=== PATIENT | female | born 1930 | race Caucasian/White ===

== ENCOUNTER 2017-03-02 16:19 | Inpatient (IN) ==
--- NOTE | 2017-03-02 18:01 | PROVIDER DOCUMENTATION ---
HPI-General Adult - General Chief Complaint: Altered Mental Status Stated Complaint: AMS Time Seen by Provider: 03/02/17 17:31 Source: family Allergies/Adverse Reactions: Patient Allergies Allergy/AdvReac Type Severity Reaction Status Date / Time No Known Allergies Allergy Verified 03/02/17 16:33 Home Medications: Home Medication List Medication Instructions Recorded Confirmed Last Taken Type Aspirin 81 mg PO DAILY 06/12/15 03/02/17 03/02/17 History Apixaban [Eliquis] 2.5 mg PO BID 12/18/16 03/02/17 03/02/17 History Allopurinol [Allopurinol] 100 mg PO DAILY 02/05/17 03/02/17 03/02/17 History Amlodipine [Norvasc] 5 mg PO DAILY 02/05/17 03/02/17 03/02/17 History Ezetimibe [Zetia] 10 mg PO DAILY 02/05/17 03/02/17 03/02/17 History Fenofibrate Nanocrystallized 145 mg PO DAILY 02/05/17 03/02/17 03/02/17 History [Fenofibrate] Furosemide [Furosemide] 20 mg PO DAILY 02/05/17 03/02/17 03/02/17 History Lisinopril [Lisinopril] 20 mg PO DAILY 02/05/17 03/02/17 03/02/17 History Sherwood-3 Fatty Acids/Fish Oil 1 each PO BID 02/05/17 03/02/17 03/02/17 History [Sherwood-3 1,000 mg Softgel] Omeprazole [Omeprazole] 20 mg PO DAILY 02/05/17 03/02/17 03/02/17 History PRAVAstatin [Pravachol] 40 mg PO DAILY 02/05/17 03/02/17 03/02/17 History Potassium Chloride E.r. [Micro-K] 10 meq PO DAILY 02/05/17 03/02/17 03/02/17 History Sotalol HCl [Sotalol] 80 mg PO BID 02/05/17 03/02/17 03/02/17 History Hydrocodone/Acetaminophen [Nordman 7.5 mg PO TID PRN 02/22/17 03/02/17 03/02/17 History 7.5-325 Tablet] Sulfamethoxazole/Trimethoprim 1 each PO BID #20 tablet 0703/02/17 Rx [Bactrim Ds Tablet] Hydrocodone/Acetaminophen [Nordman 1 each PO Q4-6H PRN PRN #40 tablet 02/26/1703/02/17 Rx 10-325 Tablet] Memantine HCl [Namenda Xr] 28 mg PO DAILY 03/02/17 03/02/17 Unknown History Clonidine [Catapres] 1 tab PO TID 03/03/17 03/03/17 03/02/17 History - History of Present Illness -Gen Adult Nature of Presenting Problems: PER PT FAMILY SHE HAS HAD CONTINUED AMS FOR THE PAST WEEK AFTER A RECENT UTI. FAMILY STS THEY AREN'T SURE IF THE UTI IS WORSE OR IF THIS IS ANOTHER PROBLEM. STS PT HAS BEEN SEEN HERE 4 TIMES IN THE PAST WEEK FOR FALLS AND HAS BEEN REMOVING HER SPLINTS AND CAST FROM ORTHO R/T DEMENTIA. FAMILY HAS BEEN STAYING WITH HER AROUND THE CLOCK BUT STS SHE IS VERY WEAK AND THEY ARE HAVING TROUBLE GETTING HER AROUND THE HOUSE WHEN THIS HAS NOT BEEN A PROBLEM BEFORE. STS SHE FELL AGAIN TODAY AND HAS A BRUISED, SWOLLEN RT ANKLE. Location of Pain/Injury: reports: lower extremity Review of Systems - Adult - REVIEW OF SYSTEMS - ADULT ROS:: ROS per family Constitutional: reports: no symptoms reported. denies: fever Eyes: reports: no symptoms reported Ears, Nose, Mouth & Throat: reports: no symptoms reported Cardiovascular: reports: no symptoms reported. denies: syncope Respiratory: reports: no symptoms reported. denies: cough, shortness of breath Gastrointestinal: reports: see HPI, constipation Genitourinary: reports: see HPI, other (RECENT UTI) Musculoskeletal: reports: see HPI, muscle weakness Integumentary: reports: no symptoms reported Neurological: reports: see HPI, other (INCREASED CONFUSION) Psychiatric: reports: no symptoms reported Endocrine: reports: no symptoms reported Hematologic/Lymphatic: reports: no symptoms reported Allergic/Immunologic: reports: no symptoms reported All Other Systems: Reviewed and Negative Past History - Adult - PAST MEDICAL HISTORY-ADULT Review of Records: reports: Old Records Reviewed, Nursing Assessment Review, Medications Reviewed, Social history reviewed & non-contributory. Major Childhood Illnesses: reports: denies history Cardiovascular: reports: A-Fib, HTN, hyperlipidemia Respiratory: reports: denies history Gastrointestinal: reports: denies history Genitourinary: reports: denies history Musculoskeletal: reports: arthritis, chronic pain Neurological: reports: dementia, TIA (balance issues) Endocrine/Immune: reports: denies history, cancer (breast ca, tx with left mastectomy/tamoxifen.) - PRIOR SURGERIES/PROCEDURES Surgical/Procedure History: reports: cardiac stent, hysterectomy, orthopedic ( extremity), joint replacement, breast - IMMUNIZATION STATUS Childhood Immunizations: See Nurse Assessment Flu Vaccine: See Nurse Assessment Physical Exam-General - PHYSICAL EXAM-ADULT Initial Vital Signs Reviewed: Yes - CONSTITUTIONAL General Appearance: appears well, alert, no apparent distress, obese - EYES Eyes: PERRL/EOMI - HEAD, EARS, NOSE, MOUTH & THROAT HENMT: normocephalic/atraumatic, moist mucous membranes - RESPIRATORY Respiratory: chest non-tender, lungs clear, normal breath sounds, no pleuratic chest pain, no respiratory distress. negative: wheezing - CARDIOVASCULAR Cardiovascular: bradycardia - GASTROINTESTINAL (ABDOMEN) Abdominal Exam: normal bowel sounds, non tender, soft, no organomegaly, no pulsatile mass, distended - MUSCULOSKELETAL Extremity: normal range of motion, non-tender, normal capillary refill, swelling (AND ECCHYMOSIS TO RT ANKLE AND FOOT, PT DENIES PAIN), other (LEFT ARM IN CAST, PARTIALLY REMOVED FROM HAND). negative: deformity - SKIN Integumentary: normal color, normal turgor, warm/dry - NEUROLOGIC Neurologic: grossly normal, motor weakness. negative: aphasia, facial droop - PSYCHIATRIC Psych/Mental Status: depressed affect, other (ORIENTED TO PERSON ONLY. ASKS ABOUT HER "9 MONTH OLD BABY", PICKS AT GOWN AND CAST.) Progress - PLAN OF CARE/RESULTS Progress/Plan/Lab Results: Vital Signs - 8 hr 03/02/17 16:34 Temperature 97.0 F L Pulse Rate 51 L Respiratory Rate 18 Blood Pressure 148/63 O2 Sat by Pulse Oximetry 99 Orders Category Date Time Status Saline Loc NOW Care 03/02/17 17:55 Active ANKLE COMPLETE RIGHT [RAD] Stat Exams 03/02/17 16:45 Taken FOOT COMPLETE RIGHT [RAD] Stat Exams 03/02/17 16:45 Taken CBC WITH ELECTRONIC DIFF [HEME] Stat Lab 03/02/17 17:55 Uncollected COMPREHENSIVE METABOLIC PANEL [CHEM] Stat Lab 03/02/17 17:55 Uncollected DISCUSSED PT EXAM, LABS, AND PLAN OF CARE WITH DR. MAR WHO AGREES WITH PLAN TO CONSULT HOSPITALIST FOR ADMISSION. Result Diagrams: 03/05/17 05:30 03/05/17 05:30 - XRAY 1 XRAY: Right XRAY Study: Ankle, Foot Impression: Normal, See EMR Report XRAY Interpretation: NO ACUTE BONY INJURY.-DR. WATERMAN - CONSULTS/PCP/HOSPITALIST Notification #1 *Consult/PCP/Hospitalist*: DR. GA Time Discussed: 20:00 (DISCUSSED INPATIENT ADMISSION FOR ARF, DEHYDRATION.) Consult Disposition: Admit Departure - Departure Date of Disposition Decision: 03/02/17 Time of Disposition Decision: 20:00 DIAGNOSIS: Dehydration Acute renal failure Qualifiers: Acute renal failure type: unspecified Qualified Code(s): N17.9 - Acute kidney failure, unspecified Disposition: ADMITTED INPATIENT 09 Certified Medical Emergency: Emergent Condition: Good - Critical Care Note This patient required my direct & personal management of CC.: No Attestation - Physician/ RONNY Attestation Patient care was provided by Advanced Practice Provider:: Yes Advanced Practice Provider:: Nicolle Laboy Advanced Practice Provider documentation review:: The Mid-level provider documentation, treatment plan and medical decision making was reviewed by the physician who agrees with all treatment and medical decision making by the P.
[2017-03-02 18:38] LABS: MANUAL DIFF NEEDED? NO
[2017-03-02 18:39] LABS: BASO% 0.4 % (0.0-0.8); EOS# 0.21 X1000 (0.0-0.7); EOS% 3.8 % (0.0-10.0); HEMATOCRIT 33.5 % (37.0-47.0); HEMOGLOBIN 10.9 g/dL (12.0-16.0); IMM GRAN# 0.02 X1000 (0.0-0.04); IMM GRAN% 0.4 % (0.0-0.5); LYMPH# 1.22 X1000 (1.2-3.4); LYMPH% 22.2 % (20.5-51.1); MCH 26.1 PG (27-31); MCHC 32.5 g/dL (33-37); MCV 80.3 FL (81-99); MONO% 12.7 % (1.7-9.3); MPV 12.4 FL (7.4-10.4); NEUT% 60.5 % (42.2-75.2); PLT 195 X1000 (130-400); RBC 4.17 XMIL (4.2-5.4)
--- NOTE | 2017-03-02 18:41 | Diag Imaging Result Doc PS360 ---
EXAM: ANKLE COMPLETE RIGHT INDICATION: fall/bruising TECHNIQUE: 3 views COMPARISON: None. FINDINGS: The bones are somewhat osteopenic. There are mild midfoot degenerative changes and small calcaneal enthesophytes. There is no discrete fracture, dislocation, or significant intrinsic osseous lesion, otherwise. There is soft tissue edema surrounding the ankle. IMPRESSION: Soft tissue edema and chronic bony changes. No definite acute osseous abnormality. Electronically signed by Jerrell Kulkarni 03/02/2017 6:38 PM
--- NOTE | 2017-03-02 18:47 | Diag Imaging Result Doc PS360 ---
EXAM: FOOT COMPLETE RIGHT INDICATION: fall/bruising TECHNIQUE: 3 views COMPARISON: None. FINDINGS: The bones are osteopenic. There are small calcaneal bone spurs and mild midfoot degenerative changes. There is no discrete fracture, dislocation, or significant intrinsic osseous lesion, otherwise. There is soft tissue edema at the dorsum of the foot. IMPRESSION: Chronic changes and soft tissue edema. No evidence of acute osseous abnormality. Electronically signed by Jerrell Kulkarni 03/02/2017 6:44 PM
[2017-03-02 19:20] LABS: ALBUMIN 3.9 g/dL (3.5-5.0); CALCIUM 9.4 mg/dL (8.8-10.2); POTASSIUM 5.2 mmol/L (3.5-5.1); TOTAL BILIRUBIN 0.4 mg/dL (0.20-1.00); TOTAL PROTEIN 6.8 g/dL (6.3-8.3)
[2017-03-02 19:22] LABS: URINE CULTURE PL NEEDED? NO
--- NOTE | 2017-03-02 19:36 | EKG Report ---
Test Performed on : 03/02/2017 7:27:57 PM Test Reason : CHEST PAIN Blood Pressure : / mmHG Vent. Rate : 060 BPM Atrial Rate : 060 BPM P-R Int : 228 ms QRS Dur : 100 ms QT Int : 456 ms P-R-T Axes : 043 -38 035 degrees QTc Int : 456 ms Sinus rhythm. with 1st degree AV block. Left axis deviation Moderate voltage criteria for LVH, may be normal variant Abnormal ECG When compared with ECG of 18-DEC-2016 03:31, Nonspecific T wave abnormality no longer evident in Lateral leads Unconfirmed Result
[2017-03-02 19:41] LABS: BILIRUBIN URINE NEGATIVE (NEGATIVE); BLOOD URINE NEGATIVE (NEGATIVE); CLARITY CLEAR (CLEAR); COLOR YELLOW; GLUCOSE URINE NEGATIVE (NEGATIVE); LEUKOCYTES URINE NEGATIVE (NEGATIVE); NITRITE URINE NEGATIVE (NEGATIVE); PROTEIN URINE NEGATIVE (NEGATIVE); SP GRAVITY URINE 1.015; UROBILINOGEN URINE 1+(1 mg/dL)
[2017-03-02 19:43] LABS: URINE CAST NONE SEEN /LPF; URINE CRYSTAL NONE SEEN /HPF; URINE EPITHELIAL CELLS <10 /HPF (<10); URINE SOURCE CATH
--- NOTE | 2017-03-02 19:56 | ED EKG INTERP ---
This chart was entered by Eugenie Kimball Scribe, acting as scribe for Kemar Penny MD. EKG Interpretation - EKG Time of EKG reading by physician:: 19:27 EKG Read and Signed by:: Kemar Penny EKG Interpretation (*Must complete 3 of following elements*): Abnormal Rate: 60 Rhythm: sinus rhythm with 1st degree AV block Votaw: left QRS: LVH This chart was documented by the indicated scribe, (Eugenie Kimball Scribe) and accurately reflects the services I performed and decisions made by me, Kemar Penny MD, as attested by the provider's signature.
[2017-03-02] MEDS ORDERED: TYLENOL PO PRN (21:30)
[2017-03-02] MEDS ORDERED: ZOFRAN IV PRN (21:30)
[2017-03-02] MEDS ORDERED: NORCO-10 PO PRN (21:55)
[2017-03-02] MEDS: NS 1,000 ML IV SCH (22:04)
[2017-03-02] MEDS: ATIVAN PO PRN (22:12)
[2017-03-03 06:46] LABS: HEMATOCRIT 37.1 % (37.0-47.0); HEMOGLOBIN 12.1 g/dL (12.0-16.0); MCHC 32.6 g/dL (33-37); MCV 79.8 FL (81-99); MPV 12.3 FL (7.4-10.4); RBC 4.65 XMIL (4.2-5.4)
[2017-03-03 07:03] LABS: ALBUMIN 3.9 g/dL (3.5-5.0); CALCIUM 9.3 mg/dL (8.8-10.2); MAGNESIUM 2.2 mg/dL (1.5-2.7); POTASSIUM 4.5 mmol/L (3.5-5.1); TOTAL BILIRUBIN 0.5 mg/dL (0.20-1.00); TOTAL PROTEIN 6.8 g/dL (6.3-8.3)
[2017-03-03] MEDS: FISH OIL CONCENTRATE PO SCH ×2 (09:39→20:44)
[2017-03-03] MEDS: TRICOR PO SCH (09:39)
[2017-03-03] MEDS: ELIQUIS PO SCH ×2 (09:39→20:44)
[2017-03-03] MEDS: ZYLOPRIM PO SCH (09:39)
[2017-03-03] MEDS: NAMENDA XR PO SCH (09:39)
[2017-03-03] MEDS: ASPIRIN PO SCH (09:39)
[2017-03-03] MEDS: NORVASC PO SCH (09:39)
[2017-03-03] MEDS: BETAPACE PO SCH ×2 (09:39→20:44)
--- NOTE | 2017-03-03 09:39 | Diag Imaging Result Doc PS360 ---
EXAM: KUB ABDOMEN INDICATION: constipation TECHNIQUE: 2 views COMPARISON: None. FINDINGS: Colonic stool is perhaps slightly increased. This could represent mild constipation. There is no obstructive bowel pattern. There is no evidence of large volume free abdominal gas. Cholecystectomy clips are noted in the right upper quadrant. There is no evidence of organomegaly. IMPRESSION: Possible mild constipation. Electronically signed by Jerrell Kulkarni 03/03/2017 9:37 AM
[2017-03-03] MEDS: NORCO-10 PO PRN (09:45)
[2017-03-03] MEDS: ATIVAN PO PRN (09:45)
[2017-03-03] MEDS: PRILOSEC PO SCH (09:51)
[2017-03-03] MEDS ORDERED: MILK OF MAGNESIA PO PRN (10:00)
[2017-03-03] MEDS: NS 1,000 ML IV SCH (11:48)
--- NOTE | 2017-03-03 12:02 | PROGRESS NOTE ---
DATE: 03/03/2017 SUBJECTIVE: The patient is still confused this morning. Denies any current other issues. The daughter notes that she is jerking which is a new thing for Ms. Jeff over the past 2-3 weeks. She will start to fall asleep and have jerking episodes. The daughter notes that she has not slept well in the past 2 weeks. PHYSICAL EXAMINATION: Vital Signs: Temperature 98, pulse 69, respiratory rate 18, BP 161/70, saturations 99% on room air. General: Patient is awake, alert, currently in no real respiratory distress. She is pleasant to talk with but confused. HEENT: Normocephalic, atraumatic. OSITO. EOMI. Neck: Supple. CV: Regular rate. Chest: Clear. Abdomen: Soft, nondistended. Positive bowel sounds. Extremities: No edema. Neurologic: No focal changes. LABS: BUN 44, creatinine 1.5, potassium 4.5. ASSESSMENT: 1. Acute renal failure, improving. Creatinine is down to 1.5. Baseline actually is 0.9 as noted on February 22. 2. Hyperkalemia secondary to acute renal failure. 3. Volume depletion, likely the cause of her acute renal failure in addition to the SAVI inhibitor. 4. Hypertension. We will continue to hold her SAVI inhibitor currently. 5. Dementia, chronic. 6. Right forearm fracture, currently casted. 7. Adult failure to thrive. Patient will need physical therapy and most likely will need rehab. PLAN: We will consult rehab. Continue IV fluids. We will hold her Lasix today. Restart her aspirin and her Eliquis. We will continue to hold her SAVI inhibitor. We will check a KUB and treat the constipation as needed. We will add Seroquel at night to see if this will help her sleep as well as her jerking episodes. We will continue to follow. Further orders as needed. cc: Zack De Los Santos MD
--- NOTE | 2017-03-03 16:48 | HISTORY AND PHYSICAL ---
PRIMARY CARE PHYSICIAN: Dr. Carli Gu. CHIEF COMPLAINT: Altered mental status. Frequent falls. HISTORY OF PRESENT ILLNESS: This is an 86-year-old female who presents to the emergency room from her primary care physician's office having had multiple falls over the last 2 weeks. In fact, she did break her left arm from a fall last week. During these 2 weeks, she has had increasing altered mental status as well as some full body jerking movements. She was thought to have a urinary tract infection at the beginning of symptoms and was treated with Bactrim with no change in symptoms. According to the daughter, the patient had been in her normal state of health until 2 weeks ago when she began to be confused. This did progress. This was followed by generalized weakness and falls and over the last week she began jerking as she is falling asleep. This is described as arms and legs jerking. There is no rhythmical motion. There is no incontinence. No change in her mental status during this time. Over the last week she has had difficulty sleeping. CT of the head performed on February 22 revealed no hemorrhage, with atrophy with chronic microvascular ischemic changes. Urinalysis was essentially negative. She is noted to have a potassium of 5.2 and a creatinine of 2 with baseline being 0.8, 0.9. She does have a BUN of 56, and the family states she has had very little p.o. intake. She is being admitted for further evaluation and treatment. PAST MEDICAL HISTORY: Breast cancer 2001. CAD status post PCI. Congestive heart failure. Dementia. Gastroesophageal reflux disease. Hyperlipidemia. Hypertension. Paroxysmal A Fib on Eliquis. PAST SURGICAL HISTORY: Cholecystectomy. Hysterectomy. Mastectomy, left. Bilateral knee replacement. SOCIAL HISTORY: Denies alcohol, tobacco, or illicit drug use. ALLERGIES: No known drug allergies. HOME MEDICATIONS: A list will be obtained. REVIEW OF SYSTEMS: A 14 point review of systems is discussed with family. Patient is unable to answer questions. As stated in the HPI, the family have seen no vomiting, diarrhea or constipation, black or bloody vomitus or stools, and she has voiced no further complaints. PHYSICAL EXAMINATION: GENERAL: This is an 86-year-old female who is sitting up in the bed, in no distress. VITAL SIGNS: Blood pressure is 160/71 with a heart rate of 69, respirations are 18, temperature is 98.9 degrees, with room air saturation of 95-99%. CARDIOVASCULAR: Regular rate and rhythm. S1 and S2 appreciated. PULMONARY: Breath sounds are clear with no increased work of breathing noted. GASTROINTESTINAL: Abdomen is soft, nontender, nondistended with bowel sounds in all 4 quadrants. EXTREMITIES: No clubbing, cyanosis, or edema. Calves are nontender. Pulses are palpable x4. She has a cast to her left arm with good movement, capillary refill to her hand. MUSCULOSKELETAL: Good range of motion of joints. NEUROLOGIC: She is alert. Speech is clear. She will talk and answer questions , although she is confused and answers make no sense in regard to the question. DIAGNOSTICS: WBC is 5.5 with hemoglobin 10.9, hematocrit 33.5, and platelets of 195,000. Sodium is 135, potassium 5.2, BUN 56, creatinine 2, with a glucose of 88. Urinalysis is essentially negative. Abdominal x-ray revealed constipation with foot and ankle x-ray revealing no acute bony changes. ASSESSMENT AND PLAN: This is an 86-year-old female who is sitting up in the bed , in no distress. 1. Dementia. 2. Acute delirium. 3. Acute renal failure, improving. 4. Hyperkalemia, improving. 5. Volume depletion due to decreased p.o. intake as well as SAVI inhibitor, which is likely the cause of her acute renal failure. 6. Hypertension. 7. Right forearm fracture. 8. Adult failure to thrive with frequent falls. PLAN: She will be admitted to the hospital. Placed on telemetry. We will identify her home medications and hold any neurotoxic medications, any diuretics. We will hold Eliquis at present due to frequent falls. We will give gentle hydration. We will consult Physical Therapy and Medical Transcription for rehab placement. Further treatments pending hospital course. Dictated by ZAKI Costa for Zack De Los Santos MD cc: ZAKI Costa MD [facility]rent[facility]
[2017-03-03] MEDS: PRAVACHOL PO SCH (20:44)
[2017-03-03] MEDS: SEROQUEL PO SCH (20:45)
[2017-03-04] MEDS: NS 1,000 ML IV SCH (01:06)
[2017-03-04] MEDS: PRILOSEC PO SCH (06:16)
[2017-03-04] MEDS ORDERED: FLEET ENEMA PR ONE (08:10)
[2017-03-04] MEDS: NAMENDA XR PO SCH (09:29)
[2017-03-04] MEDS: ZYLOPRIM PO SCH (09:29)
[2017-03-04] MEDS: ELIQUIS PO SCH (09:29)
[2017-03-04] MEDS: LACTULOSE PO SCH ×2 (09:29→21:19)
[2017-03-04] MEDS: BETAPACE PO SCH ×2 (09:29→21:18)
[2017-03-04] MEDS: FISH OIL CONCENTRATE PO SCH ×2 (09:29→21:19)
[2017-03-04] MEDS: NORVASC PO SCH (09:29)
[2017-03-04] MEDS: NORCO-10 PO PRN ×2 (09:29→14:44)
[2017-03-04] MEDS: TRICOR PO SCH (09:29)
[2017-03-04] MEDS: ASPIRIN PO SCH (09:30)
[2017-03-04] MEDS: ATIVAN PO PRN (14:44)
--- NOTE | 2017-03-04 15:06 | PROGRESS NOTE ---
DATE: 03/04/2017 SUBJECTIVE: The patient continues to be confused. She has no complaints. When asked how she feels, she whispers, "I think I feel fine". Consistently, she has not noted to have any jerking movements during my exam. OBJECTIVE: Vital Signs: Blood pressure is 157/88 with a heart rate of 72, respirations are 22, temperature is 99 degrees oral with oxygen saturations 95-97% on room air. Cardiovascular: Regular rate and rhythm. S1 and S2 appreciated. Pulmonary: Breath sounds are clear with no increased work of breathing noted. Gastrointestinal: Abdomen is soft, nontender, nondistended with bowel sounds in all 4 quadrants. Extremities: No clubbing, cyanosis, or edema. Pulses are palpable with right upper extremity and bilateral lower extremities. Left upper extremity has a long-arm cast. She does have capillary refill less than 3 seconds on all 5 fingers. She does have good movement. I am unable to evaluate sensation. ASSESSMENT: 1. Acute renal failure. This is improving. We will repeat labs in the morning and evaluate. 2. Hyperkalemia secondary to acute renal failure. This has resolved. We will continue to trend electrolytes. 3. Volume depletion which is likely the cause of her acute renal failure in the setting of LUKE inhibitor, continue IVF 4. Hypertension. We will continue her home medications, but we will hold her Luke. 5. Dementia. This is chronic. 6. Left forearm fracture. Cast is intact. 7. Adult failure to thrive. We will continue with physical therapy and look at rehab. Dictated by ZAKI Costa for Zack De Los Santos MD cc: ZAKI Costa MD [facility]
[2017-03-04] MEDS: PRAVACHOL PO SCH (21:18)
[2017-03-04] MEDS: SEROQUEL PO SCH (21:18)
[2017-03-05] MEDS ORDERED: CALMOSEPTINE OINTMENT TOP PRN (06:12)
[2017-03-05] MEDS: PRILOSEC PO SCH (06:14)
[2017-03-05 06:45] LABS: CALCIUM 8.8 mg/dL (8.8-10.2); HEMATOCRIT 39.7 % (37.0-47.0); MCHC 32.7 g/dL (33-37); MCV 79.4 FL (81-99); MPV 12.5 FL (7.4-10.4); POTASSIUM 4.2 mmol/L (3.5-5.1)
[2017-03-05] MEDS: NORVASC PO SCH (08:06)
[2017-03-05] MEDS: ASPIRIN PO SCH (08:06)
[2017-03-05] MEDS: TRICOR PO SCH (08:07)
[2017-03-05] MEDS: FISH OIL CONCENTRATE PO SCH ×2 (08:07→20:55)
[2017-03-05] MEDS: ZYLOPRIM PO SCH (08:07)
[2017-03-05] MEDS: LACTULOSE PO SCH ×2 (08:07→20:55)
[2017-03-05] MEDS: BETAPACE PO SCH ×2 (08:07→20:55)
[2017-03-05] MEDS: NAMENDA XR PO SCH (08:46)
--- NOTE | 2017-03-05 10:15 | PROGRESS NOTE ---
DATE: 03/05/2017 SUBJECTIVE: Patient without any new complaints. The daughter notes that she was much more awake and alert yesterday, but she is more confused this morning, although she is just now waking up. Starting to eat better. PHYSICAL EXAMINATION: Temperature 99, pulse 73, respiratory 21, BP 156/63, oxygen saturation 97% on room air.General: Patient is awake, alert, currently in no respiratory distress. She does answer questions and attempts to follow commands, but is certainly not always correct. HEENT: Normocephalic atraumatic. Neck: Supple. CV: Regular rate. Chest: Clear. Abdomen: Soft. Positive bowel sounds. Extremities: Moves all extremities. Neurologic: No changes. DIAGNOSTIC DATA: WBCs are elevated this morning at 12.89. BUN 30, creatinine 1.0. ASSESSMENT: 1. Acute renal failure resolved. 2. Acute volume depletion resolved. 3. Heme-positive stools likely secondary more to chronic constipation and hemorrhoids. She has had no further And she has had no further bleeding at this point. We will continue to Hemoccult her stools. 4. Discussed with the daughter possible treatment to include watchful waiting versus colonoscopy. Certainly feels as though watchful waiting at this point with an hemoglobin and hematocrit completely stable at 13 and 39 would be more beneficial to the patient than attempting to put her through a colonoscopy. The daughter agrees. 5. Acute delirium, appears back to her baseline dimension. 6. Hyperkalemia resolved. 7. Hypertension resolved. 8. Frequent falls with right forearm fracture currently in a cast. PLAN: Will watch patient today. Get physical therapy involved. Continue her home medications. Restart her Eliquis. If she has new further bleeding, certainly would be ready for rehab in the a.m. cc: Zack De Los Santos MD
[2017-03-05 14:13] LABS: OCCULT BLOOD 1 POSITIVE (NEGATIVE)
[2017-03-05] MEDS: BENTYL PO SCH ×2 (17:08→20:55)
[2017-03-05] MEDS: PRAVACHOL PO SCH (20:54)
[2017-03-05] MEDS: SEROQUEL PO SCH (20:55)
[2017-03-06] MEDS: PRILOSEC PO SCH (06:22)
[2017-03-06 06:32] LABS: HEMATOCRIT 37.5 % (37.0-47.0); MCH 25.8 PG (27-31); MCV 80.6 FL (81-99); MPV 12.5 FL (7.4-10.4); RBC 4.65 XMIL (4.2-5.4)
[2017-03-06 06:49] LABS: ALBUMIN 3.1 g/dL (3.5-5.0); MAGNESIUM 2.5 mg/dL (1.5-2.7); POTASSIUM 4.6 mmol/L (3.5-5.1); TOTAL BILIRUBIN 0.5 mg/dL (0.20-1.00); TOTAL PROTEIN 6.3 g/dL (6.3-8.3)
[2017-03-06] MEDS: LEVAQUIN 500 MG/D5W 500 MG/100 ML IVPB IV SCH (11:03)
[2017-03-06] MEDS: NORVASC PO SCH (11:04)
[2017-03-06] MEDS: FISH OIL CONCENTRATE PO SCH ×2 (11:04→22:16)
[2017-03-06] MEDS: NS 1,000 ML IV SCH ×2 (11:04→17:55)
[2017-03-06] MEDS: BETAPACE PO SCH ×2 (11:04→22:16)
[2017-03-06] MEDS: BENTYL PO SCH ×4 (11:04→22:16)
[2017-03-06] MEDS: ELIQUIS PO SCH (11:04)
[2017-03-06] MEDS: NAMENDA XR PO SCH (11:04)
[2017-03-06] MEDS: ZYLOPRIM PO SCH (11:04)
[2017-03-06] MEDS: TRICOR PO SCH (11:04)
[2017-03-06] MEDS: LACTULOSE PO SCH ×2 (11:04→22:16)
[2017-03-06] MEDS: ASPIRIN PO SCH (11:05)
--- NOTE | 2017-03-06 14:19 | PROGRESS NOTE ---
DATE: 03/06/2017 SUBJECTIVE: The patient has no complaints today. She seems to be a little more alert. She will attempt to whisper to answer questions. She did eat breakfast a little better today, per the family. OBJECTIVE: Vital Signs: Blood pressure is 165/58 with a heart rate of 73, respirations 21, temperature 98.1 degrees oral with room air saturations are 98-100%. General: The patient is awake and alert. She does attempt to answer questions more than previous days. She does follow commands. Cardiovascular: Regular rate and rhythm. S1, S2 appreciated. Pulmonary: Breath sounds are clear. No increased work of breathing noted. Gastrointestinal: Abdomen is soft, nontender, nondistended with bowel sounds in all 4 quadrants. Extremities: No clubbing, cyanosis, or edema to right upper extremity and bilateral lower extremities. Left upper extremity has a long-arm cast with capillary refill less than 3 seconds to fingers. LABORATORY DATA: WBC is 14.18. This is up from 12.89 with a hemoglobin of 12. Hematocrit 37.5, and platelets of 251,000. Sodium is 137, potassium 4.6, BUN 48, creatinine 1.6 with a glucose of 115. ASSESSMENT: 1. Acute renal failure. Resolved. 2. Acute volume depletion. Resolved. 3. Heme-positive stools. She has a history of chronic constipation and hemorrhoids, she has never had a GI work up. She has had bloody stools, with a reported small amount or red blood oozing from rectum a few times Even though H&H are stable, will transfer to [facility] for GI evaluation. Continue to hold Eliquis. 4. Leukocytosis - Obtain CT abd/pelvis without contrast due to renal failure 5 .Diarrhea. The patient continues to have diarrhea stools. White count has increased. We will get a CT of the abdomen and pelvis. We will continue Hemoccult stools. 5. Acute delirium. She has appears to be back to her baseline per family members. 6. Hyperkalemia. Resolved. 7. Hypertension. Resolved. 8. Frequent falls with a left forearm fracture currently in a cast. Dictated by ZAKI Costa for Zack De Los Santos MD cc: ZAKI Costa MD [facility]
[2017-03-06] MEDS: SEROQUEL PO SCH (22:16)
[2017-03-06] MEDS: PRAVACHOL PO SCH (22:24)
[2017-03-07 06:42] LABS: HEMATOCRIT 33.8 % (37.0-47.0); MCH 26.3 PG (27-31); MCHC 32.5 g/dL (33-37); MCV 80.9 FL (81-99); MPV 11.8 FL (7.4-10.4); RBC 4.18 XMIL (4.2-5.4)
[2017-03-07 07:06] LABS: POTASSIUM 4.7 mmol/L (3.5-5.1)
[2017-03-07] MEDS: PRILOSEC PO SCH (07:23)
[2017-03-07] MEDS: FISH OIL CONCENTRATE PO SCH ×2 (09:31→23:07)
[2017-03-07] MEDS: ASPIRIN PO SCH (09:31)
[2017-03-07] MEDS: BENTYL PO SCH ×4 (09:31→23:10)
[2017-03-07] MEDS: NS 1,000 ML IV SCH (09:31)
[2017-03-07] MEDS: BETAPACE PO SCH ×2 (09:31→23:10)
[2017-03-07] MEDS: ZYLOPRIM PO SCH (09:31)
[2017-03-07] MEDS: NORVASC PO SCH (09:31)
[2017-03-07] MEDS: TRICOR PO SCH (09:31)
[2017-03-07] MEDS: NAMENDA XR PO SCH (09:32)
[2017-03-07] MEDS: LACTULOSE PO SCH ×2 (09:32→23:08)
[2017-03-07] MEDS: LEVAQUIN 500 MG/D5W 500 MG/100 ML IVPB IV SCH (12:38)
--- NOTE | 2017-03-07 13:57 | PROGRESS NOTE ---
DATE: 03/07/2017 SUBJECTIVE: Family members at the bedside. She has no complaints today. She was answering most of my questions. As per the family this patient has a mild baseline dementia, she tolerates p.o., she still continued having some diarrhea. Gastroenterology department has been consulted because of GI bleed. OBJECTIVE: Vital Signs: Temperature 97.9 degrees, pulse 79, respiratory rate 20, blood pressure 132/42, O2 saturation 99 on room air. HEENT: Head normocephalic. No trauma. PERRLA. Neck: Supple. No JVD. No masses. Central trachea. Chest: Clear to auscultation. No wheezing. No rales. Abdomen: Soft, nontender, nondistended. No hepatosplenomegaly. Extremities: No clubbing, cyanosis, or edema. Left upper extremity has a long arm cast, she is able to move her fingers, she has multiple bruises at the level of the arm and legs. Neurological: The patient is alert. She is oriented x2. She is not oriented to time, she states that this is 1966. LABORATORY: WBC 13.8, hemoglobin 11, hematocrit 33.8, platelets 261,000. Sodium 138, potassium 4.7, chloride 107, bicarbonate 15, BUN 61, creatinine 1.3, glucose 116, calcium 9. ASSESSMENT AND PLAN: 1. Heme-positive stools. This patient has a history of chronic constipation and hemorrhoids. Right now this patient is having diarrhea and apparently she has had bloody stools. Hemoglobin and hematocrit are stable, this patient has been transferred from [facility] to [facility] for GI evaluation. 2. Leukocytosis. WBC is still high, will monitor. No fever or chills at this moment. 3. Diarrhea. The patient continued to have diarrhea, white count has increased and will wait for Gastroenterology recommendations. Probably we will get a abdominal and pelvic CT scan without contrast. 4. Acute delirium. She looks much better today. As per the family members probably this is her baseline. 5. Hypertension stable. 6. Frequent falls with left forearm fracture currently in a cast. cc: To Alan MD
--- NOTE | 2017-03-07 18:01 | CONSULTATION ---
DATE OF CONSULTATION: 03/07/2017 CONSULTING PHYSICIAN: Dr. Haro. REASON FOR CONSULT: GI bleed. HISTORY: This is an 86-year-old white female who was admitted to the hospital with altered mental status and while under treatment was seen to have some bright red blood per rectum and she was transferred to [facility] for further evaluation and treatment. The patient is confused and she still fighting altered mental status. Most of the information was obtained from the chart and from her daughters, 2 of them were present at the bedside. They tell me that her problem started about 2 weeks ago where she was complaining of pain in her right shoulder. She was brought to the emergency room and was evaluated there. She was found to have bruises on the right side of the body suggestive of a fall. Apparently she had torn her rotator cuff and during the evaluation she was found to have urinary tract infection and she was started on treatment for that. She was discharged and when she went home apparently she did not get better and had another fall which resulted in fracture of her left arm. She was brought back to the hospital and this time she was admitted for further evaluation and treatment. She continued to be on antibiotic for urinary tract infection. During the during the hospital stay the daughters tell me that she did not have any bowel movement. In fact she had not had any bowel movement for 6 days when she was started on laxative that did result in bowel movements but this saw some blood. She has been complaining of abdominal cramps after she was started on laxatives but she denied any indigestion or heartburn or reflux symptoms. She has not had any nausea, vomiting and did not have any melena. She has not been eating. She does not want to eat and she has had some sips of Ensure only. Prior to hospitalization she has been on Eliquis for chronic atrial fibrillation. She did not take any NSAID other than 81 mg of aspirin that she takes. The daughters tell me that she has had a colonoscopy but they do not remember by whom or when and what were the findings. Since she was brought to [facility] she has not had any further bright red blood per rectum at least that had has not been mentioned yet. PAST MEDICAL HISTORY: Significant for gastroesophageal reflux disease, history of hypertension, hyperlipidemia and chronic atrial fibrillation. She has also history of coronary artery disease and status post PTCA and stent placement, history of congestive heart failure. She is a breast cancer survivor. Her cancer was in 2001. Recently she has had some dementia but she was living by herself and managing her chores well till this event happened. PAST SURGICAL HISTORY: She has had left mastectomy, hysterectomy, cholecystectomy and bilateral knee replacement. MEDICATION: Prior to hospitalization she was on Eliquis, aspirin, Prilosec 20 mg every day, Catapres, allopurinol, Lasix, Norvasc, lisinopril, Namenda, [place], Zetia, fenofibrate, potassium chloride, , Pravachol, Bactrim and [place]. ALLERGIES: No drug allergies. SOCIAL HISTORY: She is a , lives by herself. Has 7 children. She does not smoke. Does not drink, does not do illicit drugs. FAMILY HISTORY: Is noncontributory. REVIEW OF SYSTEMS: As per HPI as above. PHYSICAL EXAM: General: On examination very pleasant white female, overweight. She is lying in bed conscious, alert but confused, she is not responding to questions appropriately. She has been forgetful. She does remember her remote history very well but unfortunately she has not had much of recollection of her recent history. Vital Signs: Temperature is 97.9 degrees, pulse is 79 per minute regular, breathing at a rate of 20, blood pressure was 132/42, she weighs about 218 pounds. HEENT: Head is atraumatic, normocephalic. Conjunctivae is normal. Sclerae anicteric. Nares are patent. No discharge. Buccal mucosa is dry. She is edentulous. Throat is normal. Neck: Supple. No lymphadenopathy or thyromegaly. Chest: Status post mastectomy left side otherwise clear to auscultate. Heart: Audible, no murmur. Abdomen: Is obese, it is soft, it is nontender. I could not appreciate any mass or visceromegaly. Bowel sounds are audible. No pedal edema, cyanosis, clubbing was noted. COLLAR SEPARATOR: Grossly intact except for confusion, no sensory or motor deficit could be elicited. LABS: Reviewed which showed WBC of 13.89, hemoglobin 11.0 which on admission was 10.9, hematocrit 33.81 which on admission was 32.5, MCV 80.9, platelets were 261,000. Sodium 138, potassium 4.7, chloride 107, bicarb is 15, BUN is 61, creatinine is 1.3 and LFTs which were slightly elevated is normal. IMPRESSION: This is 86-year-old white female who has multiple medical problems including chronic atrial fibrillation was on Eliquis has presented with worsening of her altered mental status currently being treated for urinary tract infection which could be the precipitating factor for her worsening of her mental condition. However she has had some rectal bleeding albeit mild. Her hemoglobin, hematocrit is stable, she is not actively bleeding now. She most likely has had bleeding or oozing from stercoral ulcer or rectal ulcers related to her prolonged constipation and once she started having bowel movement after laxative she had some bleeding from that. She has had a colonoscopy but I do not know what exactly when she had it apparently was few years ago. At this point I think I would continue watchful wait and recheck her hemoglobin and hematocrit and if she continues to bleed requiring transfusion we will proceed with endoscopy for therapeutic purposes, both the daughters of patient were reluctant to proceed with the diagnostic endoscopy at this point because of their fear about worsening of her mental condition after sedation they are concerned that she may further deteriorate after conscious sedation or anesthesia. They are also concerned about preparation for colonoscopy but they are willing to proceed with the invasive measures if that has to be done for therapeutic purposes. Again I have explained to them the detailed procedure risks, benefits, alternatives and they understand and wanted to continue the supportive care only at this time. I will be available if needed. Rest of the medical treatment as per medical team. cc: Wallace Morin MD
[2017-03-07] MEDS: PRAVACHOL PO SCH (23:06)
[2017-03-07] MEDS: SEROQUEL PO SCH (23:07)
[2017-03-08] MEDS: NS 1,000 ML IV SCH ×3 (03:12→20:21)
[2017-03-08] MEDS: PRILOSEC PO SCH (06:25)
[2017-03-08 07:04] LABS: MANUAL DIFF NEEDED? NO
[2017-03-08 07:13] LABS: BASO% 0.3 % (0.0-0.8); EOS# 0.22 X1000 (0.0-0.7); EOS% 2.1 % (0.0-10.0); HEMATOCRIT 30.7 % (37.0-47.0); HEMOGLOBIN 10.6 g/dL (12.0-16.0); IMM GRAN# 0.09 X1000 (0.0-0.04); IMM GRAN% 0.9 % (0.0-0.5); LYMPH# 1.91 X1000 (1.2-3.4); LYMPH% 18.4 % (20.5-51.1); MCH 28.7 PG (27-31); MCHC 34.5 g/dL (33-37); MCV 83.2 FL (81-99); MONO# 1.09 X1000 (0.11-0.59); MONO% 10.5 % (1.7-9.3); MPV 11.7 FL (7.4-10.4); NEUT% 67.8 % (42.2-75.2); PLT 351 X1000 (130-400); RBC 3.69 XMIL (4.2-5.4)
[2017-03-08 07:39] LABS: CALCIUM 8.8 mg/dL (8.8-10.2); POTASSIUM 4.6 mmol/L (3.5-5.1)
[2017-03-08] MEDS: LEVAQUIN 500 MG/D5W 500 MG/100 ML IVPB IV SCH (10:28)
[2017-03-08] MEDS: NORVASC PO SCH (10:29)
[2017-03-08] MEDS: TRICOR PO SCH (10:29)
[2017-03-08] MEDS: BETAPACE PO SCH ×2 (10:29→20:21)
[2017-03-08] MEDS: FISH OIL CONCENTRATE PO SCH ×2 (10:30→20:21)
[2017-03-08] MEDS: NAMENDA XR PO SCH (10:30)
[2017-03-08] MEDS: ASPIRIN PO SCH (10:30)
[2017-03-08] MEDS: BENTYL PO SCH ×4 (10:30→20:21)
[2017-03-08] MEDS: ZYLOPRIM PO SCH (10:44)
[2017-03-08] MEDS: MIRALAX PO SCH ×2 (10:44→10:54)
[2017-03-08] MEDS: ELIQUIS PO SCH ×2 (10:45→20:22)
--- NOTE | 2017-03-08 14:18 | PROGRESS NOTE ---
DATE: 03/08/2017 SUBJECTIVE: Family members at the bedside. She has no complaints today. Apparently, she has a baseline dementia. She is answering most of my questions. She is still having diarrhea. I have stopped the lactulose and I put this patient on a daily MiraLAX because she has been having severe constipation before coming to the hospital. Also, apparently her appetite has been low. So I will start this patient on Megace to see how she does. OBJECTIVE: HEENT: Head normocephalic. No trauma. PERRLA. Neck: Supple. No JVD. No masses. Central trachea. Chest: Clear to auscultation. No wheezing. No rales. Abdomen: Soft, nontender, nondistended. No hepatosplenomegaly. Extremities: No edema. No clubbing. No cyanosis. Left upper extremity has a long arm cast. She is able to move her fingers. She has multiple bruises at the level of the arms and legs. Neurological: The patient is alert. She is oriented x2. She is not oriented in time. She is able to recognize family members and following commands. LABORATORY: WBC 10.3, hemoglobin 10.6, hematocrit 30.7, platelets 351,000. Sodium 139, potassium 4.6, chloride 109, bicarbonate 15, BUN 45, creatinine 0.9, glucose 90, calcium 8.8. ASSESSMENT AND PLAN: 1. Heme positive stools. She was evaluated by Gastroenterology Department. We will monitor the hemoglobin and hematocrit. The family does not want any kind of procedures at this moment, we will monitor. 2. Leukocytosis, resolved. 3. Diarrhea. I have stopped the lactulose 30 mg p.o. twice a day and I started this patient on a daily dose of MiraLAX because she has been constipated before coming to the emergency. 4. Acute delirium. She looks better today. Probably this is her baseline. She has a baseline dementia. 5. Dementia, as above. 6. Hypertension. Stable. 7. Frequent falls with left forearm fracture currently in a [facility], [facility], Dr. De Los Santos talked to them about hospice care. They said that they did choose [facility]. I will talk to the director of social work tomorrow to set up everything for them. I had a large conversation with the daughter and we talked about power of assistant prosecuting attorney, and Do Not Resuscitate status and after 30 minutes, she decided to put her mom on Do Not Resuscitate level 1. cc: To Alan MD
[2017-03-08] MEDS: NORCO-10 PO PRN (16:54)
[2017-03-08] MEDS: PRAVACHOL PO SCH (20:22)
[2017-03-08] MEDS: SEROQUEL PO SCH (20:22)
[2017-03-08] MEDS: MEGACE PO SCH (20:29)
[2017-03-09] MEDS: PRILOSEC PO SCH (06:29)
[2017-03-09 07:57] LABS: AGAP 13; BUN 30 mg/dL (8-22); CALCIUM 8.7 mg/dL (8.8-10.2); CHLORIDE 109 mmol/L (98-107); COSMO 284; POTASSIUM 4.3 mmol/L (3.5-5.1); SODIUM 139 mmol/L (136-145); TCO2 17 mmol/L (25-35)
[2017-03-09 08:05] LABS: HEMATOCRIT 32.9 % (37.0-47.0); HEMOGLOBIN 10.4 g/dL (12.0-16.0); MCH 26.7 PG (27-31); MCHC 31.6 g/dL (33-37); MCV 84.6 FL (81-99); MPV 12.1 FL (7.4-10.4); RBC 3.89 XMIL (4.2-5.4)
[2017-03-09] MEDS: LEVAQUIN 500 MG/D5W 500 MG/100 ML IVPB IV SCH (10:09)
[2017-03-09] MEDS: BENTYL PO SCH ×4 (10:10→20:14)
[2017-03-09] MEDS: NS 1,000 ML IV SCH ×2 (10:10→22:00)
[2017-03-09] MEDS: ELIQUIS PO SCH ×2 (10:11→20:14)
[2017-03-09] MEDS: ASPIRIN PO SCH (10:11)
[2017-03-09] MEDS: BETAPACE PO SCH ×2 (10:11→20:14)
[2017-03-09] MEDS: MEGACE PO SCH ×2 (10:12→20:15)
[2017-03-09] MEDS: NORVASC PO SCH (10:12)
[2017-03-09] MEDS: MIRALAX PO SCH (10:12)
[2017-03-09] MEDS: NAMENDA XR PO SCH (10:12)
[2017-03-09] MEDS: FISH OIL CONCENTRATE PO SCH ×2 (10:12→20:14)
[2017-03-09] MEDS: TRICOR PO SCH (10:13)
[2017-03-09] MEDS: NORCO-10 PO PRN ×2 (10:13→20:23)
[2017-03-09] MEDS: ZYLOPRIM PO SCH (10:13)
--- NOTE | 2017-03-09 16:09 | PROGRESS NOTE ---
DATE: 03/09/2017 SUBJECTIVE: Family members at the bedside. When I evaluated this patient, she was just finishing physical therapy. She has some weakness and felt dizzy. Family has decided to go home with hospice. They already talked to [facility] for this patient. I talked to the nurse today to see if we can call the orthopedic surgeon or the crime scene technician to remove this to see if we are able to remove the cast and put a splint instead. Diarrhea improved. She had just 1 bowel movement today. OBJECTIVE: Vital Signs: Temperature 97.6 degrees, pulse 85, respiratory rate 20, blood pressure 153/67, oxygen saturation 92 on room air. HEENT: Head normocephalic. No trauma. PERRLA. Neck: Supple. No JVD. No masses. Central trachea. Chest: Clear to auscultation. No wheezing. No rales. Abdomen: Soft, nontender, nondistended. No hepatosplenomegaly. Extremities: No edema. No clubbing. No cyanosis. Left upper extremity has a long-arm cast. She is able to move her fingers. She has multiple bruises at the level of the arms and legs. Neurological Examination: The patient is alert. She is oriented x2. She is not oriented to time. She is able to recognize family members and she is following commands. She has generalized weakness. LABORATORY: WBC 10.6, hemoglobin 10.4, hematocrit 32.9, platelets 266,000. Sodium 139, potassium 4.3, chloride 109, bicarbonate 17, BUN 30, creatinine 0.8, glucose 97, calcium 8.7. ASSESSMENT AND PLAN: 1. Heme positive stools. She was evaluated by Gastroenterology Department. We will continue to monitor the hemoglobin and hematocrit. The family does not want to do any kind of aggressive procedure at this moment. We will monitor. Hemoglobin and hematocrit has been stable. 2. Leukocytosis resolved. 3. Diarrhea. I have stopped the lactulose yesterday that was 30 mg p.o. twice a day and I started this patient on daily MiraLAX because she had been constipated before coming to the emergency department. The diarrhea resolved. Today she had just 1 bowel movement. We will monitor. 4. Acute delirium. She looks better, probably this is her baseline. Also she has baseline dementia. 5. Dementia. As above. 6. Hypertension stable. 7. Frequent falls with left forearm fracture currently in a cast. Apparently at [facility] Dr. De Los Santos talked to them about hospice care and they have decided to go ahead and talk to [facility]. 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 We are just waiting for the Hospice Team. This patient is DNR level 1. Once everything is set up with hospice she can be discharged. cc: To Alan MD
[2017-03-09] MEDS: PRAVACHOL PO SCH (20:14)
[2017-03-09] MEDS: SEROQUEL PO SCH (20:15)
[2017-03-10] MEDS: PRILOSEC PO SCH (06:28)
[2017-03-10] MEDS: MEGACE PO SCH (09:21)
[2017-03-10] MEDS: MIRALAX PO SCH (09:21)
[2017-03-10] MEDS: ASPIRIN PO SCH (09:21)
[2017-03-10] MEDS: BETAPACE PO SCH (09:21)
[2017-03-10] MEDS: BENTYL PO SCH ×2 (09:22→12:50)
[2017-03-10] MEDS: TRICOR PO SCH (09:22)
[2017-03-10] MEDS: ELIQUIS PO SCH (09:22)
[2017-03-10] MEDS: FISH OIL CONCENTRATE PO SCH (09:22)
[2017-03-10] MEDS: NAMENDA XR PO SCH (09:22)
[2017-03-10] MEDS: NORVASC PO SCH (09:22)
[2017-03-10] MEDS: ZYLOPRIM PO SCH (09:22)
[2017-03-10] MEDS: NORCO-10 PO PRN (09:38)
[2017-03-10] MEDS: NS 1,000 ML IV SCH (11:15)
[2017-03-10] MEDS: LEVAQUIN 500 MG/D5W 500 MG/100 ML IVPB IV SCH (11:15)
--- NOTE | 2017-03-10 15:54 | DISCHARGE SUMMARY ---
ADMISSION DATE: 02/26/2017 DISCHARGE DATE: 03/10/2017 CONSULTATIONS: Wallace Morin MD with Gastroenterology. PERTINENT PROCEDURES: 1. Ankle x-ray on the right showed soft tissue edema and chronic bony changes. No definite acute osseous abnormality. 2. Complete right foot x-ray showed chronic changes and soft tissue edema. No evidence of acute osseous abnormality. 3. Abdominal x-ray showed possible mild constipation. DISCHARGE DIAGNOSES: 1. Heme-positive stools. Evaluated by Gastroenterology. Hemoglobin and hematocrit has remained stable. The patient did not want any type of aggressive procedures. They have chosen to take the patient home with [facility]. 2. Leukocytosis resolved. 3. Constipation. Started on a bowel regimen, now with diarrhea. Patient's lactulose was stopped and she is now continued on daily MiraLAX. 4. Acute delirium. Back at her baseline dementia. 5. Dementia. 6. Hypertension stable. 7. Frequent falls with a left forearm fracture currently in a cast. HOSPITAL COURSE: Ms. Jeff is an 86-year-old, female who carries a past medical history of breast cancer, CAD status post PCI, congestive heart failure, dementia, GERD, hyperlipidemia, hypertension, paroxysmal atrial fibrillation on Eliquis, who presented to the ED from her PCP's office who is Dr. Estrada after having had multiple falls over a 2 week time period. She had a break to her left forearm. She also had increase in altered mental status as well as some full body jerking movements. She was thought to have a urinary tract infection at the beginning of her symptoms and was treated with Bactrim with no change. According to her daughters, she had been in her normal state of health until 2 weeks ago when she began to be confused. This was all followed by generalized weakness, falls, and then jerking as she was falling asleep. This was described as her arms and legs jerking. No rhythmical motion. No incontinence. Initial labs on admission showed white count 5, hemoglobin 10, hematocrit 33, platelet count 195,000, BUN of 30, creatinine of 1.0, sodium 136. Urinalysis was negative. She was admitted for acute delirium as well as acute renal failure felt to be secondary to dehydration and SAVI inhibitor use which was discontinued. The patient did have heme- positive stool while she was at [facility] but they felt it was likely secondary to marked chronic constipation and hemorrhoids. She had no further bleeding. They continued to monitor her hemoglobin and hematocrit which has remained stable. Vital signs remained stable. She was still having confusion. She was eating very little. The patient was started on a bowel regimen secondary to her constipation. They transferred her to [facility] for a GI workup. GI also felt the she most likely had bleeding or oozing from stercoral ulcer or rectal ulcers related to her prolonged constipation and once she started having bowel movements after the laxative she had some bleeding from that. They recommended continued watchful waiting as well as to continue to monitor her serial hemoglobin and hematocrit, and only transfuse if needed. Proceed with endoscopy for therapeutic purposes but the daughter was reluctant for any diagnostic endoscopy for fear of worsening her mental condition after sedation. They fear that it would further deteriorate her mental status. Dr. Haro had a lengthy conversation with one of the daughters who is the power of associate attorney. The patient was made a DNR level 1 and they have also talked to [facility] and she will be going home today on hospice. VITAL SIGNS: Temperature is 97.6 degrees, heart rate 109, respirations 20, blood pressure 109/85, O2 is 94% on room air. DISCHARGE DIET: Healthy heart. DISCHARGE MEDICATIONS PER DR. SYKES: 1. Norvasc 5 mg p.o. daily. 2. [place] 7.5 mg p.o. q.4 hours p.r.n. pain. 3. Lisinopril 20 mg p.o. daily. 4. Ativan 1 mg p.o. q.4 hours p.r.n. 5. Seroquel 50 mg p.o. at bedtime. DISPOSITION: The patient is being discharged home with [facility]. FOLLOWUP: The patient can follow up with her primary care physician, Dr. Leonel Estrada, as well as her orthopedist in reference to the cast on her left arm as indicated. DISCHARGE TIME: 35 minutes. Dictated by ZAIK Casanova for Ha Parisi MD cc: MD Leonel Billingsley, DO [facility]
[2017-03-10 17:29] VITALS: BP 104/87
== END 2017-03-10 18:06 | disposition hospice, home (50) ==
LOC: P.ED 16:19 → P.MEDSURG 20:27 → SUATTDRO 20:27 → 3N 03-06 17:31
PROVIDERS: ATTEND Internal Medicine